=== PATIENT | male | born 1955 | race Caucasian/White ===

== ENCOUNTER 2022-03-04 09:20 | Outpatient (REF) | payer OTHER, SELFPAY ==
--- NOTE | ~2022-03-04 | MR_ITS ---
MR LUMBAR SPINE WITHOUT CONTRAST CLINICAL INFORMATION: Lumbar region spinal stenosis with neurogenic claudication. COMPARISON: None available. TECHNIQUE: MRI of the lumbar spine was obtained using routine sequences without contrast. FINDINGS: There are 5 nonrib-bearing lumbar-type vertebral bodies. There is grade 1 degenerative anterolisthesis of L5 on S1. There is grade 1 retrolisthesis of L1 on L2, L2 on L3, and L3 on L4. There are Modic type I endplate signal changes at L1-L2, L2-L3, L3-L4, and L4-L5. There is no additional bone marrow edema. Multilevel endplate osteophytes. Moderate to severe central canal stenosis at all lumbar levels. Conus terminates at the L1-L2 level. There is bilateral perinephric stranding. T12-L1: Diffuse annular disc bulge with a superimposed shallow left paracentral disc protrusion and mild bilateral facet arthropathy and ligamentum flavum thickening result in mild central canal stenosis and mild bilateral foraminal encroachment. L1-L2: There is a diffuse disc osteophyte complex with a superimposed far left lateral disc osteophyte protrusion that compresses the extraforaminal left L1 nerve root. Mild narrowing of the central canal and mild right foraminal encroachment. L2-L3: There is a diffuse disc osteophyte complex and there is moderate bilateral hypertrophic facet arthropathy and ligamentum flavum thickening. Findings in concert result in mild to moderate central canal stenosis, left greater than right subarticular zone stenosis with mass effect on the traversing left greater the right L3 nerve roots, as well as moderate left-sided foraminal stenosis. Far lateral disc osteophyte results in mass effect on the extraforaminal L2 nerve roots bilaterally. L3-L4: Diffuse disc osteophyte complex eccentric to the right side and moderate bilateral facet arthropathy and ligamentum flavum thickening. Findings in concert result in mild to moderate central canal stenosis, right subarticular zone stenosis with compression of the traversing right L4 nerve root, and moderate right-sided foraminal stenosis with compression of the extraforaminal right L3 nerve root. L4-L5: Diffuse disc osteophyte complex and severe bilateral hypertrophic facet arthropathy and ligamentum flavum thickening. Large right facet joint effusion. Findings in concert result in severe central canal stenosis and moderate to severe bilateral foraminal stenosis with compression of the exiting L4 nerve roots bilaterally. L5-S1: Grade 1 degenerative anterolisthesis. Severe bilateral hypertrophic facet arthropathy. Findings in concert result in bilateral subarticular zone stenosis with mass effect on the traversing S1 nerve roots bilaterally as well as moderate bilateral foraminal stenosis with disc osteophyte resulting in compression of the extraforaminal L5 nerve roots bilaterally. MR/MR lumbar spine wo con IMPRESSION: - At L5-S1, there is grade 1 degenerative anterolisthesis in the setting of severe bilateral hypertrophic facet arthropathy contributing to bilateral subarticular zone stenosis with mass effect on the traversing S1 nerve roots bilaterally as well as moderate bilateral foraminal stenosis with disc osteophyte resulting in compression of the extraforaminal L5 nerve roots bilaterally. - At L4-L5, multifactorial degenerative changes result in severe central canal stenosis and moderate to severe bilateral foraminal stenosis with compression of the exiting L4 nerve roots bilaterally. Modic type I endplate signal changes at this level. - At L3-L4, multifactorial degenerative changes result in mild to moderate central canal stenosis, right subarticular zone stenosis with compression of the traversing right L4 nerve root, and moderate right-sided foraminal stenosis with compression of the extraforaminal right L3 nerve root. - At L2-L3, multifactorial degenerative changes result in mild to moderate central canal stenosis, left greater than right subarticular zone stenosis with mass effect on the traversing left greater the right L3 nerve roots, as well as moderate left-sided foraminal stenosis. Far lateral disc osteophyte results in mass effect on the extraforaminal L2 nerve roots bilaterally. - At L1-L2, a far left lateral disc osteophyte protrusion compresses the extraforaminal left L1 nerve root.
== END 2022-03-04 09:21 | disposition home or self-care (01) ==
LOC: HO.MRI 09:20
PROVIDERS: Visit Provider Internal Medicine
DX: M48.062 Spinal stenosis, lumbar region with neurogenic claudication (principal)
CPT/HCPCS: 72148

== ENCOUNTER 2022-05-07 10:55 | Day surgery (SDC) | payer MEDICARE, SELFPAY ==
--- NOTE | 2022-05-06 09:34 | HO.ANESPROP2 ---
HPI - Anesthesia Eval Consult details Narrative: 67yo M for Bilateral Minimally invasive lumbar decompression Pt on ASA for ? carotid stenosis. Cleared to come off asa for 7 days but need INR preop per PCP PMFSH Active Problems Active Problems: All Active Problems (Updated 05/01/22 @ 16:14 by Roselyn Romano, RN) Spinal stenosis, lumbar region with neurogenic claudication (Acute) Past Medical History Medical History (Updated 05/01/22 @ 16:14 by Roselyn Romano, RN) Carotid stenosis COPD (chronic obstructive pulmonary disease) Hyperlipidemia Hypertension Restless leg syndrome Seasonal allergies Surgical History Surgical History (Updated 05/01/22 @ 16:14 by Roselyn Romano, RN) History of left knee surgery Meds Allergies Allergy/AdvReac Type Severity Reaction Status Date / Time No Known Allergies Allergy Verified 05/01/22 16:14 Home Medications Medication Instructions Recorded Confirmed Last Taken Type amlodipine 10 mg-atorvastatin 40 1 tab PO DAILY 02/17/22 05/01/22 Unknown History mg tablet carvedilol 6.25 mg tablet 6.25 mg PO BID 02/17/22 05/01/22 Unknown History celecoxib 200 mg capsule 200 mg PO BID 02/17/22 05/01/22 Unknown History gabapentin 300 mg capsule 300 mg PO BID 02/17/22 05/01/22 Unknown History trazodone 50 mg tablet 100 mg PO BEDTIME PRN Sleep 02/17/22 05/01/22 Unknown History aspirin 81 mg tablet,delayed 81 mg PO DAILY 03/10/22 05/01/22 Unknown History release (Adult Aspirin Regimen) albuterol sulfate 90 mcg/actuation 2 puff inhalation Q4H PRN wheezing 05/01/22 05/01/22 Unknown History aerosol inhaler Exam Exam Date and Time: May 06, 202234 Narrative Narrative: Per PCP note 60% bilateral ICA stenosis Assessment and Plan Assessment Anesthesia Assessment: Chart Reviewed
--- NOTE | ~2022-05-07 | FL_ITS ---
EXAMINATION: XR FLUOROSCOPY WITH IMAGES CLINICAL INFORMATION: Lumbar pain. COMPARISON: None. TECHNIQUE: Fluoroscopy performed by Dr. Blayne Cadena. Fluoroscopy time: 18.1 minutes. Cumulative Dose: 570 mGy. DAP: 38.1 Gycm2. Images: 8. FINDINGS: There are a digital images obtained revealing needle positioned posteriorly adjacent to the L5, L4 spinous processes for pain management. There is degenerative disc changes and scoliosis of mid lumbar spine. No visible acute fracture seen on the images obtained. FL/FL guidance in OR IMPRESSION: Fluoroscopy guidance was provided to referring physician for pain management.
[2022-05-07 08:16] VITALS: BMI 35.2
[2022-05-07 11:04] VITALS: BP 152/93; PULSE 59; RESP 20; TEMP 36.6; O2SAT 97
--- NOTE | 2022-05-07 11:26 | PC.NURSE ---
pt wheezing no sob noted pwd called for reps tx pt aware
[2022-05-07 11:27] LABS: INTERNATIONAL NORM RATIO 1.2 (0.9-1.1); Prothrombin Time 13.4 SEC (10.0-13.1)
[2022-05-07] MEDS: Lactated Ringers 1,000 ML 100 ML IVCONT (11:39)
[2022-05-07] MEDS: Albuterol Sulfate (0.083%) 2.5 MG/3 ML VIAL.NEB INHALE (11:47)
--- NOTE | 2022-05-07 11:53 | PC.NURSE ---
pt stiil wheezing after resp tx will tiger anesthesia
--- NOTE | 2022-05-07 11:56 | PC.NURSE ---
pt moving air better wheezing better no sob resp easy and reg recieved resp tx dr reynoso aware
--- NOTE | 2022-05-07 12:02 | PC.NURSE ---
anesthesia at bedside evaluating patient
[2022-05-07 13:00] LABS: MRSA Nasal PCR NEGATIVE (Negative); SA Nasal PCR NEGATIVE (Negative)
--- NOTE | 2022-05-07 13:19 | MHC.SHP ---
Pre-Procedural Eval Section A Date of Service: 05/07/22 The patient is an INPATIENT: No Changes since office visit: Yes Patient answered all questions The History & Physical has been completed within 30 days and I have reviewed it.: No Section B Chief Complaint: Spinal stenosis, lumbar region with neurogenic Relevant Social History: None Present Medications: see Short Stay Collaborative assessment History of Previous Operations: No relevant previous surgery Allergies: Allergies Allergy/AdvReac Type Severity Reaction Status Date / Time No Known Allergies Allergy Verified 05/01/22 16:14 Review of Systems Sugical H&P ROS: Negative: Constitution, Cardiovascular and Respiratory Exam Surgical H&P Exam: Normal: HEENT and Normal: Heart and Significant Findings: Lungs (wheezing, patient states this is baseline) Plan Diagnosis/Plan: Change I have reviewed the history and physical and performed a pertinent physical examination on my patient. Proceed with planned procedure. Patient deemed not optimized per anesthesia - not a candidate for sedation. Room air sat is 97%. Patient willing to proceed under local anesthesia only.
--- NOTE | 2022-05-07 15:54 | PM.OP ---
Brief Operative Note Date of Service: 05/07/22 Pre-op diagnosis: Lumbar spinal stenosis with neurogenic claudication CPT 0275T, modifier Q0 Primary Diagnosis: m48.062 Secondary Diagnosis: Z00.6 NCT: [id number] Post-op diagnosis: same Procedure: Minimally invasive lumbar decompression at L3/4 and L4/5 Surgeon: Blayne Cadena MD Anesthesia: local Was an Resident Intern used for this Procedure?: No Estimated blood loss (mL): 10 Pathology: none sent Condition: stable Disposition: PACU
[2022-05-07 15:58] VITALS: BP 141/74; PULSE 92; RESP 18; TEMP 36.9; O2SAT 97
--- NOTE | 2022-05-07 16:01 | W.PM.OPN ---
Operative Note Operative Note Date of Service: 05/07/22 Narrative: Minimally Invasive Lumbar Decompression, Bilateral, L-3/4, L-4/5 After informed consent, patient was brought to the operating room. The patient was placed in the prone position in the fluoroscopy suite with blankets (bolster) under the hips to assist with reversing lordosis of the spine. Following antibiotic administration (Cefazolin 2gm), the patient was prepped and draped in the standard sterile fashion. Time-out was performed to confirm site and level of intervention. Ample amounts of local anesthetic were used to anesthetize the skin and deep facial planes after topographical landmarks were identified. Procedural safety barriers were established by utilizing a contralateral oblique (CHALINO) view to visualize the ventral interlaminar line (VILL). Instruments remained posterior to the VILL during the percutaneous lumbar decompression procedure. A small midline incision was made with a sharp scalpel blade, and a trocar with portal was inserted percutaneously under fluoroscopic guidance to contact the L4 lamina. The trocar and portal were tugged to the right side to approach the right interlaminar space first. A bone-sculpting rongeur was inserted to remove adequate amounts of lamina (laminotomy) from the superior surface of the inferior operative lamina site and from the inferior aspect of the lamina above it. The laminotomy created a passage for the tissue sculpting instrument used in debulking the ligamentum flavum. The ligamentum flavum was debulked until diminished returns. A similar procedure was performed on the contralateral side. There were no complications or difficulties noted with these procedures. A small midline incision was then made with a sharp scalpel blade for L4/5 access, and a trocar with portal was inserted percutaneously under fluoroscopic guidance to contact the L5 lamina. The same procedure was then repeated at this level. Upon completion of the procedure, instruments were removed, hemostasis was achieved by direct pressure, and wound closure was performed with dermabond and steristrips. The patient tolerated the procedure well. Upon transferring the patient to the recovery room, the patient?s vital signs remained stable and without any neurologic deficits. The patient was discharged with instructions to rest, continue with ice, and to demonstrate progressive mobility. The patient was given a follow-up exam time and date along with instructions and contact information for any questions or concerns. The patient is to be followed up in the office for further evaluation and treatment, as deemed appropriate and necessary, and for any concerns regarding the procedure.
== END 2022-05-07 16:55 | disposition home or self-care (01) ==
PROVIDERS: Nurse Practitioner; Nurse Practitioner Family; PCP Student in an Organized Health Care Education/Training Program; Visit Provider Internal Medicine
PROC: (CPT 0275T; principal; 2022-05-07 12:50)
DX: M48.062 Spinal stenosis, lumbar region with neurogenic claudication (principal); Z00.6 Encounter for examination for normal comparison and control in clinical research program; J44.9 Chronic obstructive pulmonary disease, unspecified; I10 Essential (primary) hypertension; I65.29 Occlusion and stenosis of unspecified carotid artery; E78.5 Hyperlipidemia, unspecified; G25.81 Restless legs syndrome; Z79.82 Long term (current) use of aspirin; Z79.899 Other long term (current) drug therapy
CPT/HCPCS: 0275T; 36415; 85610; 87640; 87641; C1889; J0690

== ENCOUNTER → 2022-05-23 09:39 | Outpatient (BNVA) | payer MEDICARE, SELFPAY | PROVIDERS: PCP Student in an Organized Health Care Education/Training Program; Visit Provider Internal Medicine | DX: M48.062 Spinal stenosis, lumbar region with neurogenic claudication (principal) | CPT/HCPCS: 99212 ==

== ENCOUNTER 2022-05-28 06:05 | Outpatient (REF) | payer MEDICARE, SELFPAY ==
--- NOTE | ~2022-05-28 | FL_ITS ---
EXAMINATION: XR FLUOROSCOPY WITH IMAGES CLINICAL INFORMATION: M48.062 - Spinal stenosis, lumbar region with neurogenic claudication COMPARISON: MR lumbar spine 03/04/2022 TECHNIQUE: Fluoroscopy performed by Dr. Blayne Cadena. Fluoroscopy time: 0.5 minutes. Cumulative Dose: 39.1 mGy. DAP: 5.15 Gy-cm2. Images: 1. FINDINGS: There is a spinal needle with tip overlying the outer right L4 foramen. There are multilevel degenerative disc changes again noted with disc narrowing and vertebral osteophytes. FL/FL guidance in treatment room IMPRESSION: Fluoroscopy for pain management procedures.
== END 2022-05-28 06:06 | disposition home or self-care (01) ==
LOC: CF 06:05
PROVIDERS: Visit Provider Internal Medicine
DX: M48.062 Spinal stenosis, lumbar region with neurogenic claudication (principal); M54.16 Radiculopathy, lumbar region
CPT/HCPCS: 64483; J1100; J2795; Q9966; Q9967

== ENCOUNTER → 2022-08-08 09:46 | Outpatient (BNVA) | payer MEDICARE, SELFPAY | PROVIDERS: PCP Student in an Organized Health Care Education/Training Program; Visit Provider Internal Medicine | DX: M48.062 Spinal stenosis, lumbar region with neurogenic claudication (principal) | CPT/HCPCS: 99212 ==